=== PATIENT | male | born 2000 | race Caucasian/White ===

== ENCOUNTER 2022-01-21 09:25 | Emergency (ER) | payer OTHER, SELFPAY ==
--- NOTE | ~2022-01-21 | XR_ITS ---
EXAMINATION: XR finger 1st LT min 2V DATE: 01/21/2022 10:05 INDICATION: Left thumb foreign body. TECHNIQUE: 4 views of left thumb were obtained. COMPARISON: None. FINDINGS: Bone alignment is normal. No visible fracture. Joint spaces are normal. There is a nail in the soft tissues at ulnar aspect of left thumb. IMPRESSION: 1. Nail in the left thumb soft tissues. Radiographs are recommended after removal to evaluate for fra cture. Reviewed, dictated and finalized at location B. IMPRESSION: 1. Nail in the left thumb soft tissues. Radiographs are recommended after remov al to evaluate for fracture.
--- NOTE | ~2022-01-21 | XR_ITS ---
EXAMINATION: XR finger 1st LT min 2V DATE: 01/21/2022 12:37 INDICATION: Left thumb foreign body status post removal. TECHNIQUE: 3 views of left thumb were obtained. COMPARISON: Left thumb radiographs at 10:00 AM FINDINGS: Bone alignment is normal. No fracture. Joint spaces are normal. No radiopaque foreign body. IMPRESSION: 1. No fracture. Reviewed, dictated and finalized at location B. IMPRESSION: 1. No fracture.
[2022-01-21 09:51] VITALS: BP 144/71; PULSE 71; RESP 18; TEMP 36.6; O2SAT 100
[2022-01-21 10:14] VITALS: BP 131/65; PULSE 73; O2SAT 100
--- NOTE | 2022-01-21 12:26 | ED.WOUNDLAC ---
HPI - Wound/Laceration General Chief Complaint: Wound/Laceration Stated Complaint: nail in hand Time Seen by Provider: 01/21/22 10:49 Source: patient Mode of arrival: ambulatory Limitations: no limitations History of Present Illness HPI narrative: This is a 21 year old male that presents to the ER for injury sustained just prior to arrival. Reports he accidentally shot himself in the left hand with a nail gun. Reports pain in the left first finger as well as tingling. Reports he is up-to-date on tetanus. Related Data Allergies Allergy/AdvReac Type Severity Reaction Status Date / Time No Known Allergies Allergy Verified 01/21/22 12:28 Review of Systems Review of Systems: CONSTITUTIONAL: Denies fever MUSCULOSKELETAL: Reports joint pain, and myalgia. NEUROLOGIC: Denies numbness All systems reviewed & are unremarkable except as noted in HPI and below PMFSH Past Medical History Medical History (Updated 01/21/22 @ 13:44 by Darlene Humphries PA-C) No active medical problems Social History Social History (Updated 01/21/22 @ 12:30 by Darlene Humphries PA-C) Substance use: never Exam Narrative: GENERAL: Well-appearing, well-nourished, and in no acute distress. HEAD: Normocephalic, atraumatic. EYES: EOMI. EXTREMITIES: Decreased active range of motion in the left first finger with large nail noted in the soft tissues at the base of the left thumb. There is no exit wound SKIN: Warm, dry, no rash. NEURO: No focal deficits. Alert and oriented x3. PSYCH: Normal mood and affect Course Vital Signs Vital signs: Vital Signs Temperature 97.8 F 01/21/22 09:51 Pulse Rate 71 01/21/22 09:51 Respiratory Rate 18 01/21/22 09:51 Blood Pressure 144/71 H 01/21/22 09:51 Pulse Oximetry 100 01/21/22 09:51 Oxygen Delivery Room Air 01/21/22 09:51 Temperature 97.8 F 01/21/22 09:51 Pulse Rate 73 01/21/22 10:14 Respiratory Rate 18 01/21/22 09:51 Blood Pressure 131/65 01/21/22 10:14 Pulse Oximetry 100 01/21/22 10:14 Oxygen Delivery Room Air 01/21/22 09:51 Procedures Foreign Body Removal Foreign Body #1: Foreign Body Removal Date: 01/21/22 Foreign Body Removal Time: 12:33 Time Out Performed: yes Site: left (thumb) Description of foreign body: other (Nail) Sedation/Analgesia: other (Lidocaine ) Technique: other (Removal with pliers) Confirmed by:: direct visualization Complications: none Post-procedure exam: awake, alert Neurovascular: normal capillary fill and distal motor function normal MDM - Wound/Laceration MDM Narrative Medical decision making narrative: Patient presents to the ER after a nail gun injury sustained just prior to arrival. Patient reports he is up to date on tetanus. Left first finger x-ray shows nail on the left thumb soft tissues. This was successfully removed. Post reduction x-ray shows no fracture or retained foreign body. Patient's wound was thoroughly irrigated. He was educated on wound care. He will be started on oral antibiotics. Given first dose in the ED. He will be given follow-up with hand surgery. He was given warnings to return to the ER Imaging Data Radiologist's impression: ITS Impressions Finger X-Ray 01/21/22 10:09 IMPRESSION: 1. Nail in the left thumb soft tissues. Radiographs are recommended after removal to evaluate for fracture. ITS Impressions Finger X-Ray 01/21/22 10:09 IMPRESSION: 1. Nail in the left thumb soft tissues. Radiographs are recommended after removal to evaluate for fracture. Finger X-Ray 01/21/22 12:39 IMPRESSION: 1. No fracture. Critical Care Time Critical Care Time Critical Care Time: No Discharge Plan Discharge Clinical Impression: Foreign body of hand, left Qualifiers: Encounter type: initial encounter Qualified Code(s): S60.552A - Superficial foreign body of left hand, initial encounter Patient
--- NOTE | 2022-01-21 12:50 | PC.NURSE ---
Pt refused abx IM dose. jarad Lujan notified.
[2022-01-21] MEDS: CEPHALEXIN 500 MG CAPSULE PO (13:14)
== END 2022-01-21 14:12 | disposition home or self-care (01) ==
PROVIDERS: Emergency Provider Emergency Medicine
DX: S60.552A Superficial foreign body of left hand, initial encounter (principal); W29.4XXA Contact with nail gun, initial encounter
CPT/HCPCS: 73140; 99283; A9270